=== PATIENT | male | born 1980 | race Caucasian/White ===

== ENCOUNTER → 2018-01-01 | Outpatient (REF) ==
[~2018-01-01] MED LIST: AMOX-559 PO; GLUCOSAMINE; IBUP600T22 PO; PER PO; mvi
== END ==
LOC: AUD 09:30
PROVIDERS: ATTEND Internal Medicine
DX: Z01.10 Encounter for examination of ears and hearing without abnormal findings (principal)
CPT/HCPCS: 92552

== ENCOUNTER 2018-08-15 14:37 | Emergency (ER) | payer BC ==
--- NOTE | 2018-08-15 15:10 | ER Report ---
History and Physical Time Seen By MD: 15:03 Hx. of Stated Complaint: LACERATION TO RIGHT EYE BROW HPI/ROS CHIEF COMPLAINT: Laceration HISTORY OF PRESENT ILLNESS: 37-year-old male patient presents to the emergency room with complaints laceration to the right eyebrow. Patient states that he was working on the house this afternoon. He states he is bringing a flexible piping into the house. He did not notice but one and got caught on the fence. He states that as he continued to walk he did notice until started to pull. At that time he looked over her shoulder when the end of the plate dislodged from the fence. He states that it spreading up and hit him just over the eye. He states that he did break his safety glasses. Patient denies having any visual changes. He denies having any pain except around the wound. Patient states that his last tetanus shot was in 2014. Allergies: Coded Allergies: No Known Drug Allergies (Verified , 08/15/18) Home Meds No Active Prescriptions or Reported Meds Past Medical/Surgical History Patient has a past medical history of occasional alcohol use. Patient has surgical history of wisdom teeth removed. Hx Smoking: No Smoking Status: Never Smoker Hx Substance Use Disorder: No Hx Alcohol Use: Yes (occ) Constitutional Vital Sign - Last 24 Hours 08/15/18 08/15/18 08/15/18 08/15/18 14:47 15:30 15:35 16:16 Temp 98.7 Pulse 77 72 Resp 14 B/P (MAP) 143/91 130/82 (98) 128/77 (94) Pulse Ox 95 96 O2 Delivery Room Air Physical Exam General appearance: Alert no distress. Respiratory: Chest is non tender, lungs are clear to auscultation. Cardiac: Regular rate and rhythm Skin: A rodrigues has a 2.570 laceration to the right eyebrow. Does go into the subcutaneous tissue. Patient has no difficulty with moving the right eye. DIFFERENTIAL DIAGNOSIS: After history and physical exam differential diagnosis was considered for laceration. Medical Decision Making ED Course/Re-evaluation ED Course Patient was admitted to an exam room, history and physical were obtained. Differential diagnoses were considered. On examination lungs are clear, heart is regular. Patient did have a 2.570 laceration to the right eyebrow which goes into the subcutaneous tissue. He does appear to be in the shape of AV. The area was anesthetized, cleaned and repaired as described below. Patient will be discharged home at this time. He is follow-up with his primary care provider in 5-7 days to have sutures removed. He is to monitor for signs of infection. Patient verbalized understanding and agreement with plan. Procedure: Laceration repair. Verbal consent was obtained from the patient. The 2.5 cm laceration on the right eyebrow was anesthetized in the usual fashion. The wound was scrubbed, draped and explored to its base with a gloved finger. There were no deep structures involved. No tendon injury was identified. The wound was repaired with 6 simple interrupted sutures using 6-0 Prolene material. The wound repair was simple. The procedure was performed by myself. Decision to Disposition Date: Aug 15, 2018 Decision to Disposition Time: 16:12 Depart Departure Latest Vital Signs Vital Signs Date Time Temp Pulse Resp B/P (MAP) Pulse Ox O2 Delivery O2 Flow Rate FiO2 08/15/18 16:16 128/77 (94) 08/15/18 15:35 72 96 08/15/18 14:47 98.7 14 Room Air Impression: Primary Impression: Laceration of eyebrow Condition: Improved Disposition: HOME OR SELF-CARE New Scripts No Active Prescriptions or Reported Meds Patient Instructions: Facial Laceration (ED) Additional Instructions: Keep wound dry for 48 hours. Follow up with your primary care provider in the next 5-7 days to have sutures removed. Monitor for signs of infection; redness, swelling, heat, discharge, increasing pain or red streaking. Take Tylenol or Ibuprofen as needed for pain. Return to the ER with any concerns. Problem Qualifiers Primary Impression: Laceration of eyebrow Encounter type: initial encounter Laterality: right Qualified Codes: S01.111A - Laceration without foreign body of right eyelid and periocular area, initial encounter JULITA MUELLER Aug 15, 2018 15:10
[2018-08-15 16:16] VITALS: BP 128/77
== END 2018-08-15 16:21 | disposition home or self-care (01) ==
LOC: ER 15:00
DX: S01.111A Laceration without foreign body of right eyelid and periocular area, initial encounter (principal); W20.8XXA Other cause of strike by thrown, projected or falling object, initial encounter
CPT/HCPCS: 99283